=== PATIENT | female | born 1970 | race Caucasian/White ===

== ENCOUNTER 2020-09-11 11:31 | Emergency (ER) | payer MEDICAID ==
[2020-09-11 11:50] VITALS: BP 169/74
--- NOTE | 2020-09-11 12:16 | EDM.PDOC ---
ED HPI GENERAL MEDICAL PROBLEM - General Chief Complaint: Lower Extremity Injury/Pain Stated Complaint: R KNEE PAIN Time Seen by Provider: 09/11/20 11:46 Source of Information: Reports: Patient History Limitations: Reports: No Limitations - History of Present Illness INITIAL COMMENTS - FREE TEXT/NARRATIVE: 49-year-old female presents to the emergency department today with complaints of right lower extremity pain. She states that she has a history of sciatica and was having issues with this. She was seen at [facility] early this week and had x-rays completed of her right knee. She states that she was told this just showed some arthritic changes. She was given a prescription for meloxicam and Flexeril for the sciatica and knee pain. However, she states that this morning she was on her knees by her bed looking for her shoes and when she stood up she felt and heard a popping in the back of her right calf. She states that since then she has only been able to bear minimal weight and she states that her toes feel slightly numb. Complains of discomfort primarily in the back of her calf radiating up to her knee. She states that her lower leg feels like a weight. She denies any history of smoking however she does take control pills. Denies any previous injury to her right lower extremity. Right Lower Leg Pain Score (Numeric/FACES): 8 - Related Data Allergies Allergy/AdvReac Type Severity Reaction Status Date / Time cephalexin [From Keflex] Allergy Hives Verified 01/30/16 06:33 clindamycin Allergy Hives Verified 01/30/16 06:33 erythromycin base Allergy Hives Verified 01/30/16 06:33 Penicillins Allergy Hives Verified 01/30/16 06:33 Sulfa (Sulfonamide Allergy Nausea Verified 09/11/20 11:50 Antibiotics) Home Meds: Home Meds Cyclobenzaprine [Flexeril] 10 mg PO TID PRN 09/11/20 [History] Meloxicam 15 mg PO DAILY PRN 09/11/20 [History] Past Medical History - Past Surgical History HEENT Surgical History: Reports: Tonsillectomy GI Surgical History: Reports: Appendectomy Social & Family History - Tobacco Use Tobacco Use Status *Q: Never Tobacco User - Caffeine Use Caffeine Use: Reports: None - Recreational Drug Use Recreational Drug Use: No Review of Systems - Review of Systems Review Of Systems: Comprehensive ROS is negative, except as noted in HPI. ED EXAM, GENERAL - Physical Exam Exam: See Below Exam Limited By: No Limitations General Appearance: Alert, WD/WN, Mild Distress Nose: Normal Inspection Throat/Mouth: Normal Inspection, Normal Lips, Normal Voice, No Airway Compromise Head: Atraumatic, Normocephalic Neck: Normal Inspection, Supple Respiratory/Chest: No Respiratory Distress, No Accessory Muscle Use Cardiovascular: Normal Peripheral Pulses, Regular Rate, Rhythm Peripheral Pulses: 2+: Radial (L), Radial (R) GI/Abdominal: No Distention (Female) Exam: Deferred Rectal (Female) Exam: Deferred Back Exam: Normal Inspection, Full Range of Motion Extremities: Normal Inspection, Normal Range of Motion, No Pedal Edema, Normal Capillary Refill. No: Non-Tender (right popliteal area tenderness) Neurological: Alert, Oriented, Normal Cognition Psychiatric: Normal Affect, Normal Mood Skin Exam: Warm, Dry, Intact, Normal Color, No Rash Lymphatic: No Adenopathy Course - Vital Signs Text/Narrative:: 49-year-old female with sudden onset pain and popping noted to the back of her right calf when she was standing up from kneeling beside her bed this morning. Since she is unable to bear weight and states she feels like her toes are numb and tingly. She does have positive CMS however. I have ordered an ultrasound of the right lower extremity. Last Recorded V/S: Last Vital Signs Temp 99.0 F 09/11/20 11:44 Pulse Resp 20 09/11/20 11:44 BP 169/74 H 09/11/20 11:44 Pulse Ox - Orders/Labs/Meds Meds: Medications Discontinued Medications Generic Name Dose Route Start Last Admin Trade Name Rajendraq PRN Reason Stop Dose Admin Ketorolac Tromethamine 60 mg 09/11/20 12:20 09/11/20 12:27 Ketorolac 60 Mg/2 Ml Sdv IM 09/11/20 12:21 60 mg ONETIME ONE Administration - Re-Assessments/Exams Free Text/Narrative Re-Assessment/Exam: 09/11/20 14:03 Radiologist impression right lower extremity deep venous ultrasound: 1. No findings of deep venous thrombosis within the right lower extremity or within the left common femoral vein. 09/11/20 14:12 Discussed the results with the patient and she will be discharged to home with recommendations that she rest, ice, elevate and she will be taking ibuprofen for the discomfort. If this is not better by Sunday she is to follow-up with Dr. Cassidy at his clinic. She is agreeable to this plan of care. Departure - Departure Time of Disposition: 14:13 Disposition: Home, Self-Care 01 Condition: Good Clinical Impression: Pain of right lower extremity due to injury - Discharge Information Instructions: Muscle Strain, [id number] Referrals: PCP,None [Primary Care Provider] - Forms: ED Department Discharge Additional Instructions: You were seen in the emergency department today with complaints of right calf pain after standing up from a kneeling position. Ultrasound was completed and you do not have a blood clot in your right leg. You likely do have some muscle strain. Recommend that you go home and rest for the remainder of the weekend. Ice the right leg 30 minutes at a time every 3 hours while awake. Elevate the right leg is much as possible. May use Adi wrap for comfort. Recommend you take ibuprofen 600 mg every 6 hours for the next 48 hours. Be sure to take this with food to prevent stomach ulcer. If you are not feeling better by Sunday I recommend that you follow-up with Dr. Cassidy, orthopedic surgeon, at [facility]. The phone number is [phone]. Should your condition worsen or change do not hesitate returning to the emergency department. Sepsis Event Note (ED) - Evaluation Sepsis Screening Result: No Definite Risk - Focused Exam Vital Signs: Vital Signs Temp Resp BP 09/11/20 11:44 99.0 F 20 169/74 H
[2020-09-11] MEDS ORDERED: Ketorolac 60 MG/2 ML SDV IM ONE (12:20)
--- NOTE | 2020-09-11 13:55 | US ---
Right lower extremity deep venous ultrasound: Duplex and color Doppler evaluation was obtained of the right common femoral, proximal greater saphenous, superficial femoral, popliteal, posterior tibial and peroneal veins. Common femoral vein was also evaluated. Comparison: No prior right lower extremity deep venous ultrasound. Findings: Normal phasic flow, augmentation and compression is seen. Impression: 1. No findings of deep venous thrombosis within the right lower extremity or within the left common femoral vein. Diagnostic code #1
== END 2020-09-11 14:45 | disposition home or self-care (01) ==
LOC: JD.ED 11:31
DX: M25.561 Pain in right knee (principal); G89.11 Acute pain due to trauma; Z88.0 Allergy status to penicillin; Z88.2 Allergy status to sulfonamides; Z88.1 Allergy status to other antibiotic agents
CPT/HCPCS: 93971; 96372; 99283; J1885